=== PATIENT | male | born 1965 | race Caucasian/White ===

== ENCOUNTER 2022-07-04 16:10 | Emergency (ER) | payer MEDICAID, OTHER ==
[~2022-07-04] VITALS: Ht 175.3 cm; Wt 72.6 kg
--- NOTE | 2022-07-04 16:33 | NUR ---
BIB [facility] FROM HOME, FELT CONFUSED AFTER DRINKING A CLEAR LIQUID IN A GLASS SO HE CAN WASH IT, BLOOD SUGAR 117. VITALS ARE WITHIN NORMAL LIMITS. AWAITING MD ORDERS.
--- NOTE | 2022-07-04 16:53 | NUR ---
PT REFUSING LABS AND CT, SAYING HES FEELING BETTER, MD AWARE.
--- NOTE | 2022-07-04 17:03 | NUR ---
DR BRITO AT BEDSIDE FOR RE EVAL AWAITING FOR ORDERS
[2022-07-04 17:16] VITALS: BP 128/75
== END 2022-07-04 17:20 | disposition home or self-care (01) ==
LOC: ER 16:12
DX: T41.291A Poisoning by other general anesthetics, accidental (unintentional), initial encounter (principal); R41.82 Altered mental status, unspecified; E11.9 Type 2 diabetes mellitus without complications; I10 Essential (primary) hypertension; Y92.89 Other specified places as the place of occurrence of the external cause